=== PATIENT | female | born 1965 | race Caucasian/White ===

== ENCOUNTER 2021-01-15 05:33 | Observation (INO) | payer BC ==
[2021-01-08 11:55] LABS: BASOPHILS % (AUTO) 0.4 % (0-1); EOSINOPHILS # (AUTO) 0.3 X10'3 (0-0.9); EOSINOPHILS % (AUTO) 2.7 % (0-6); LYMPHOCYTES % (AUTO) 30.2 % (21-51); MEAN CORPUSCULAR HGB CONC 31.7 g/dL (33.0-36.5); MEAN CORPUSCULAR VOLUME 75.8 FL (78-98); MEAN PLATELET VOLUME 6.9 FL (7.4-10.4); MONOCYTES # (AUTO) 0.7 X10'3 (0-0.9); MONOCYTES % (AUTO) 6.5 % (2-12); NEUTROPHILS # (AUTO) 6.1 X10'3 (1.8-7.7); NEUTROPHILS % (AUTO) 60.2 % (42-75); PRE OP HEMOGLOBIN 13.6 g/dL (12.0-16.0); PRE OP PLATELET COUNT 389 X10'3 (140-440); RED BLOOD COUNT 5.68 X10'6 (4.20-5.60)
[2021-01-08 12:11] LABS: ALBUMIN 3.5 G/DL (3.4-5.0); ALBUMIN/GLOBULIN RATIO 0.9 (1.1-1.5); ALKALINE PHOSPHATASE 169 IU/L (46-116); BLOOD UREA NITROGEN 9 MG/DL (7-18); BUN/CREATININE RATIO 13.2 (6.6-38.0); CALCIUM 8.9 MG/DL (8.5-10.1); CHLORIDE 109 MMOL/L (99-107); CREATININE 0.68 MG/DL (0.40-0.90); PRE OP ALT 27 U/L (30-65); PRE OP ANION GAP 11 (8-16); PRE OP AST 20 U/L (10-37); PRE OP BILIRUB, TOTAL 0.5 MG/DL (0.0-1.0); PRE OP GLUCOSE 88 MG/DL (70-104); PRE OP SODIUM 145 MMOL/L (135-145); TOTAL CARBON DIOXIDE 25.4 MMOL/L (24-32); TOTAL PROTEIN 7.6 G/DL (6.4-8.2); eGFR 90 ML/MIN
[2021-01-08 13:03] LABS: ANISOCYTOSIS 1+; MICROCYTOSIS 1+; PLATELET ESTIMATE NORMAL
[2021-01-15] VITALS (15 sets, daily range): BP systolic 100–153; BP diastolic 48–92
[~2021-01-15] VITALS: Ht 170.2 cm; Wt 115.9 kg
[~2021-01-15 05:33] MED LIST: ATOR40TA72 PO; HYDR-3972 PO; VENL150C58 PO; ceFOXitin 2GM-NS 100mL ADDvant 100 ML IV ONE; famotidine 20mg tablet PO ONE; ringers solution, lacted 1,000 ML IV SCH
[2021-01-15] MEDS ORDERED: LIDOcaine 1% W/epiNEPHrine 1:200,000 10ml vial ONE ×2 (06:41→08:26)
[2021-01-15] MEDS ORDERED: clindamycin phosphate 40gm vag cream ONE (06:41)
[2021-01-15] MEDS ORDERED: ceFAZolin 1000mg inj ONE (06:42)
[2021-01-15] MEDS ORDERED: propofol inj 20 ML IV ONE (07:29)
[2021-01-15] MEDS ORDERED: midazolam 1 mg/ML 2ml injection ONE (07:29)
[2021-01-15] MEDS ORDERED: fentaNYL/PF 50MCG/1 ML 2ML syringe ONE (07:29)
[2021-01-15] MEDS ORDERED: rocuronium 10mg/ml inj IV ONE (07:29)
[2021-01-15] MEDS ORDERED: sevoflurane 250ml liquid IH ONE (07:38)
[2021-01-15] MEDS ORDERED: proCHLORperazine 10 MG/2 ml inj IV PRN (07:40)
[2021-01-15] MEDS ORDERED: meperidine/PF 25mg/ml syringe IV PRN ×3 (07:40)
[2021-01-15] MEDS ORDERED: ondansetron/PF 4mg/2ml inj IV PRN ×2 (07:40→09:20)
[2021-01-15] MEDS ORDERED: morphine 2 MG/ML inj. syringe IV PRN (07:40)
[2021-01-15] MEDS ORDERED: morphine 4 MG/ML inj SYRINge IV PRN (07:40)
[2021-01-15] MEDS ORDERED: ringers solution, lacted 1,000 ML IV SCH ×2 (07:40→09:20)
[2021-01-15] MEDS ORDERED: ondansetron/PF 4mg/2ml inj ONE (08:58)
[2021-01-15] MEDS ORDERED: dexamethasone sod phosphate 4mg/ml inj. ONE (08:58)
[2021-01-15] MEDS ORDERED: neostigmine methylsulfate 1 MG/ML 10ml vial ONE (08:59)
[2021-01-15] MEDS ORDERED: glycopyrrolate 0.2mg/ml inj ONE (09:00)
[2021-01-15] MEDS ORDERED: mag hydrox/Alum hydrox/simeth 30ml oral suspension PO PRN (09:20)
[2021-01-15] MEDS ORDERED: temazepam 15mg capsule PO PRN (09:20)
[2021-01-15] MEDS ORDERED: diphenhydrAMINE 50 mg/ml inj IV PRN (09:20)
[2021-01-15] MEDS ORDERED: LORazepam 2 mg/ml vial IV PRN (09:20)
[2021-01-15] MEDS ORDERED: naloxone 0.4 mg/ml inj IV PRN (09:20)
[2021-01-15] MEDS ORDERED: CADD PCA waste documentation MC PRN (09:20)
[2021-01-15] MEDS ORDERED: normal saline 500ML IV soln IV PRN (09:20)
[2021-01-15] MEDS ORDERED: oxyCODONE/APAP 5-325mg tablet PO PRN (09:20)
[2021-01-15] MEDS ORDERED: ketorolac trometh. 30mg/ml inj. IV PRN (09:20)
--- NOTE | 2021-01-15 09:20 | NUR ---
Received from OR via , accompanied by Anesthesiologist DR CARR and report given by Anesthesiolgist.AWAKENS TO VOICE. VITALS STABLE. DRESSING DI. KAIN PAIN. ABD SOFT. MAYES WITH CLEAR URINE.
[2021-01-15] MEDS: HYDROmorph./NS 0.2 mg/ml CADD 100 ML IV SCH ×2 (09:52→13:00)
--- NOTE | 2021-01-15 10:11 | NUR ---
I have received report from TRISHA Up and had the opportunity to ask questions and assume patient care.
--- NOTE | 2021-01-15 10:20 | NUR ---
Report called to receiving nurse. Transferred via BED Belongings . Special Issues communicated to receiving nurse.AWAKE AND ORIENTED. VITALS STABLE. DRESSING DI. KAIN PAIN. TO SURGICAL RM 350B AT THIS TIME.
--- NOTE | 2021-01-15 12:54 | NUR ---
Pt upset regarding perceived lack of care. States she 'can do this at home'. Dr Pedro notified and will be up to floor to speak with pt after her last OR case. Pt currently saline locked and dilaudid COPY OPERATOR taken down. Will continue to monitor.
--- NOTE | 2021-01-15 14:00 | NUR ---
Pt refusing to be reconnected to vitals machine to finish post op VS.
[2021-01-15] MEDS: oxyCODONE/APAP 5-325mg tablet PO PRN ×3 (14:13→22:26)
[2021-01-15] MEDS: simethicone 80mg chew tab PO SCH ×2 (14:14→17:59)
--- NOTE | 2021-01-15 14:15 | NUR ---
Pt refusing to have IV fluids connected and refusing dilaudid RESIDENT ENGINEER. PO pain meds administered.
--- NOTE | 2021-01-15 14:46 | NUR ---
Contacted Dr Pedro regarding primary RN stated patient would like to have some Ativan. Dr Pedro ok to have ativan at that time I did see order for Ativan 1mg IV. Dr Pedro also ok to have patients Dilaudid Cadd Dc'd patient not wanting Cadd for pain. Went into patients room to see if she would like some Ativan, patients family at bedside. Patient declined any Ativan at this time. I advised patient she can ask for Ativan if she feels like she needs it the order is for every 4Hr prn
--- NOTE | 2021-01-15 18:26 | NUR ---
Problems reprioritized. Patient report given, questions answered & plan of care reviewed with TRISHA Quintero.
--- NOTE | 2021-01-15 19:13 | NUR ---
Patient in room [facility]. I have received report from Nessa RICO and had the opportunity to ask questions and assume patient care.
[2021-01-15] MEDS ORDERED: docusate sod 100mg capsule PO SCH (20:00)
[2021-01-15] MEDS: docusate sod 100mg capsule PO SCH (22:10)
[2021-01-16] VITALS: BP 109/53
--- NOTE | 2021-01-16 06:18 | NUR ---
Patient in room [facility]. I have received report from ismael RICO with alma RICO and had the opportunity to ask questions and assume patient care.
--- NOTE | 2021-01-16 06:25 | NUR ---
Patient in room [facility]. I have received report from Michael RICO and had the opportunity to ask questions and assume patient care.
[2021-01-16 06:58] LABS: BASOPHILS % (AUTO) 0.3 % (0-1); EOSINOPHILS # (AUTO) 0.1 X10'3 (0-0.9); EOSINOPHILS % (AUTO) 0.5 % (0-6); HEMOGLOBIN 12.9 g/dl (12.0-16.0); LYMPHOCYTES # (AUTO) 2.4 X10'3 (1.1-4.8); LYMPHOCYTES % (AUTO) 15.5 % (21-51); MEAN CORPUSCULAR HEMOGLOBIN 25.1 PG (27.0-31.0); MEAN CORPUSCULAR HGB CONC 33.1 g/dL (33.0-36.5); MEAN CORPUSCULAR VOLUME 76.1 FL (78-98); MEAN PLATELET VOLUME 6.6 FL (7.4-10.4); MONOCYTES # (AUTO) 0.7 X10'3 (0-0.9); MONOCYTES % (AUTO) 4.5 % (2-12); NEUTROPHILS # (AUTO) 12.3 X10'3 (1.8-7.7); NEUTROPHILS % (AUTO) 79.2 % (42-75); PLATELET COUNT 374 X10'3 (140-440); RED BLOOD COUNT 5.13 X10'6 (4.20-5.60); RED CELL DISTRIBUTION WIDTH 18.2 % (11.5-14.5); WHITE BLOOD COUNT 15.6 X10'3 (4.5-11.0)
[2021-01-16 07:00] VITALS: BP 143/88
[2021-01-16 07:16] LABS: ALBUMIN 3.2 G/DL (3.4-5.0); ANION GAP 6 (8-16); BLOOD UREA NITROGEN 9 MG/DL (7-18); BUN/CREATININE RATIO 12.5 (6.6-38.0); CHLORIDE 109 MMOL/L (99-107); CREATININE 0.72 MG/DL (0.40-0.90); GLUCOSE 119 MG/DL (70-104); POTASSIUM 3.7 MMOL/L (3.5-5.1); SODIUM 143 MMOL/L (135-145); TOTAL CARBON DIOXIDE 27.7 MMOL/L (24-32); eGFR 84 ML/MIN
--- NOTE | 2021-01-16 07:25 | NUR ---
Problems reprioritized. Patient report given, questions answered & plan of care reviewed with Shania RICO.
[2021-01-16] MEDS ORDERED: atorvastatin 20mg tablet PO SCH (08:00)
[2021-01-16] MEDS ORDERED: venlafaxine XR 75mg capsule (Q24H) PO SCH (08:00)
[2021-01-16] MEDS: simethicone 80mg chew tab PO SCH (08:37)
[2021-01-16] MEDS: docusate sod 100mg capsule PO SCH (08:37)
--- NOTE | 2021-01-16 09:30 | NUR ---
Pt Dc to home with family. Pt is A & O x4 and in no apparent distress. pt verbalizes understanding of all DC orders and verbalizes the importance of following up with Dr Dooley in 2 weeks. Pt has been very anxious, cussing and wants to go AMA. Pt expecting Dr Dooley but is 0825 ans she is not here, she is crying and is angry at staff for not giving her the support she needs because her needs are not being met. Pt states her daughter at home is Schizo effect and she needs to be home and no one cares. Dr dooley came to see her at 0830. Pt calmed down, wants her IV cath out, removed intact. pt sign her orders and refused to go in wheel chair. Pt walked to the front escorted by me, her nurse. Her brother in law was waiting for her at front, pt made a last remark about the awful are and staff.... and left.
== END 2021-01-16 09:28 | disposition home or self-care (01) ==
LOC: PAS 05:33 → SUR 3N 06:00
PROVIDERS: ADMIT Obstetrics & Gynecology; ATTEND Obstetrics & Gynecology
DX: N39.3 Stress incontinence (female) (male) (principal); Z20.822 Contact with and (suspected) exposure to COVID-19; N81.11 Cystocele, midline; N81.6 Rectocele; N94.10 Unspecified dyspareunia; G47.33 Obstructive sleep apnea (adult) (pediatric); G43.909 Migraine, unspecified, not intractable, without status migrainosus; E78.00 Pure hypercholesterolemia, unspecified; F32.9 Major depressive disorder, single episode, unspecified; M19.90 Unspecified osteoarthritis, unspecified site; E66.9 Obesity, unspecified; Z86.14 Personal history of Methicillin resistant Staphylococcus aureus infection; Z90.710 Acquired absence of both cervix and uterus; Z87.440 Personal history of urinary (tract) infections; Z87.891 Personal history of nicotine dependence; Z79.899 Other long term (current) drug therapy
CPT/HCPCS: 36415; 57260; 57288; 80048; 80053; 82948; 85025; 86885; 86900; 86901; 93005; 96365; 96366; 96375; C1758; C1771; G0378; J0690; J0694; J1100; J1170; J2060; J2250; J2405; J2704; J2710; J3010; U0003; U0005; 85008; A4355; A4618; A7000; J3490; J7120

== ENCOUNTER 2023-06-28 12:26 | Emergency (ER) | payer BC ==
[~2023-06-28] VITALS: Ht 170.2 cm; Wt 115.9 kg
[~2023-06-28 12:26] MED LIST changes: -ceFOXitin 2GM-NS 100mL ADDvant 100 ML IV ONE; -famotidine 20mg tablet PO ONE; -ringers solution, lacted 1,000 ML IV SCH
[2023-06-28 12:27] VITALS: TEMP 97.9
[2023-06-28] MEDS: ondansetron 4mg rapidly disintigrating tab PO ONE (12:49)
[2023-06-28] MEDS: HYDROcodone/acetaminophen 5mg/325mg tablet PO ONE (12:49)
[2023-06-28 14:58] VITALS: BP 133/68; PULSE 53; RESP 19; O2SAT 95
== END 2023-06-28 15:12 | disposition home or self-care (01) ==
LOC: ER 12:27
DX: M25.521 Pain in right elbow (principal); R07.81 Pleurodynia; Z79.899 Other long term (current) drug therapy; W19.XXXA Unspecified fall, initial encounter; Y93.89 Activity, other specified; Y92.89 Other specified places as the place of occurrence of the external cause; Y99.8 Other external cause status
CPT/HCPCS: 71101; 73080; 99284